=== PATIENT | male | born 2000 | race African-American/Black ===

== ENCOUNTER 2021-06-05 20:10 | Emergency (ER) | payer OTHER ==
[~2021-06-05] VITALS: Ht 167.6 cm; Wt 66.4 kg
[2021-06-05] MEDS ORDERED: LIDOCAINE/PF 1% 2 ML VIAL IM ONE (21:00)
[2021-06-05] MEDS ORDERED: FAMCICLOVIR 250 MG TABLET PO ONE (21:00)
[2021-06-05] MEDS ORDERED: AZITHROMYCIN 500 MG TABLET PO ONE (21:00)
[2021-06-05] MEDS ORDERED: CefTRIAXone SODIUM 1 GM/VIAL IM ONE (21:00)
[2021-06-05] MEDS ORDERED: ValACYclovir HCL 500 MG TABLET PO ONE (21:15)
[2021-06-05 22:03] VITALS: BP 135/75
== END 2021-06-05 22:05 | disposition home or self-care (01) ==
LOC: EDSEX 20:13 → EMS 20:13
DX: A60.00 Herpesviral infection of urogenital system, unspecified (principal); N34.2 Other urethritis
CPT/HCPCS: 96372; 99284; J0696; J3490; Q9967